=== PATIENT | male | born 1965 | race Caucasian/White ===

== ENCOUNTER 2018-08-14 19:24 | Emergency (ER) | payer MEDICAID ==
[2018-08-14] MEDS ORDERED: ONDANSETRON 4 MG/2 ML VIAL IVP ONE (20:09)
[2018-08-14] MEDS ORDERED: LORazepam 2 MG/ML INJ IVP ONE (20:09)
[2018-08-14] MEDS ORDERED: chlordiazePOXIDE 25 MG CAP PO ONE (20:09)
[2018-08-14] MEDS ORDERED: NS 1,000 ML IV ONE (20:19)
[2018-08-14 20:36] LABS: PLATELET COUNT 241 10^3/uL (150-400)
--- NOTE | 2018-08-14 21:42 | EDPHY ---
H & P Stated Complaint: ETOH withdrawal and right arm injury Time Seen by Provider: 08/14/18 19:46 HPI/ROS: Chief complaint: Alcohol withdrawal History of present illness: This is a 52-year-old male who presents to the emergency department concerned he has an alcohol withdrawal. He states he has a chronic drinker. His last drink was this morning. Since then he started feel poorly. He describes malaise, nausea without vomiting and shakiness. He did fall and strike his right arm and has an abrasion to the forearm. No pain and he is still moving the extremity well. He denies other associated signs or symptoms Review of systems: A 10 point review of systems was obtained and other than described above was negative - Personal History Current Tetanus/Diphtheria Vaccine: Yes Current Tetanus Diphtheria and Acellular Pertussis (TDAP): Yes Tetanus Vaccine Date: 2009 - Medical/Surgical History Hx Asthma: No Hx Chronic Respiratory Disease: No Hx Diabetes: No Hx Cardiac Disease: No Hx Renal Disease: No Hx Cirrhosis: No Hx Alcoholism: Yes Hx HIV/AIDS: No Hx Splenectomy or Spleen Trauma: No Other PMH: SMOKER. HOMELESS. pacemaker. stroke 2010. poss mass on right kidney - Social History Smoking Status: Current every day smoker - Physical Exam Exam: General Appearance: Alert, no apparent distress, tremulous. Eyes: Pupils equal and round no pallor or injection. ENT, Mouth: Mucous membranes moist. Respiratory: There are no retractions, lungs are clear to auscultation. Cardiovascular: Tachycardic with regular rhythm. Gastrointestinal: Abdomen is soft and nontender, no masses, bowel sounds normal. Neurological: Alert. Strength and sensation intact and symmetrical. Skin: Warm and dry, no rashes. Musculoskeletal: Neck is supple nontender. There is a contusion to his right mid forearm. No tenderness to palpation. He is moving the right upper extremity without difficulty. Extremities are symmetrical, full range of motion. Psychiatric: Patient is oriented X 3, there is no agitation. Constitutional: Initial Vital Signs Temperature (C) 36.6 C 08/14/18 19:25 Heart Rate 120 H 08/14/18 19:25 Respiratory Rate 16 08/14/18 19:25 Blood Pressure 122/77 H 08/14/18 19:25 O2 Sat (%) 94 08/14/18 19:25 O2 Delivery Mode Room Air Allergies/Adverse Reactions: povidone-iodine [From Betadine] Allergy (Severe, Verified 08/14/18 19:29) Other-Enter Comments soap [From Betadine] Allergy (Severe, Verified 08/14/18 19:29) Other-Enter Comments ketorolac tromethamine [From Toradol] Allergy (Intermediate, Verified 08/14/18 19:29) Hives Home Medications: Medication Instructions Recorded NK [No Known Home Meds] 08/14/18 Medical Decision Making ED Course/Re-evaluation: Patient seen under the supervision of my secondary supervising physician Dr. Cora Khan. Patient presents to the emergency department concerned he is going through alcohol withdrawal. He is nontoxic. He is tachycardic but night hypertensive. He is tremulous. There is mild abrasion to his right arm I do not believe this warrants imaging given lack of tenderness and good movement. Blood studies largely unremarkable. He is IV hydrated. Treated with IV Ativan and oral Librium with improvement in symptoms. He does appear to be intoxicated still. He will be discharged to the [facility] for treatment. Differential Diagnosis: Included but not limited to alcohol intoxication, alcohol withdrawal, delirium tremens, polysubstance abuse - Data Points Laboratory Results: Laboratory Results 08/14/18 20:27 08/14/18 20:27 08/14/18 08/14/18 20:27 20:27 WBC 3.90 10^3/uL 10^3/uL (3.80-9.50) RBC 4.44 10^6/uL 10^6/uL (4.40-6.38) Hgb 13.5 g/dL L g/dL (13.7-17.5) Hct 38.9 % L % (40.0-51.0) MCV 87.6 fL fL (81.5-99.8) MCH 30.4 pg pg (27.9-34.1) MCHC 34.7 g/dL g/dL (32.4-36.7) RDW 15.9 % H % (11.5-15.2) Plt Count 241 10^3/uL 10^3/uL (150-400) MPV 9.0 fL fL (8.7-11.7) Neut % (Auto) 53.8 % % (39.3-74.2) Lymph % (Auto) 31.0 % % (15.0-45.0) [place] % (Auto) 12.6 % % (4.5-13.0) Eos % (Auto) 1.3 % % (0.6-7.6) Baso % (Auto) 1.0 % % (0.3-1.7) Nucleat RBC Rel Count 0.0 % % (0.0-0.2) Absolute Neuts (auto) 2.10 10^3/uL 10^3/uL (1.70-6.50) Absolute Lymphs (auto) 1.21 10^3/uL 10^3/uL (1.00-3.00) Absolute Monos (auto) 0.49 10^3/uL 10^3/uL (0.30-0.80) Absolute Eos (auto) 0.05 10^3/uL 10^3/uL (0.03-0.40) Absolute Basos (auto) 0.04 10^3/uL 10^3/uL (0.02-0.10) Absolute Nucleated RBC 0.00 10^3/uL 10^3/uL (0-0.01) Immature Gran % 0.3 % % (0.0-1.1) Immature Gran # 0.01 10^3/uL 10^3/uL (0.00-0.10) Sodium 140 mEq/L mEq/L (135-145) Potassium 3.9 mEq/L mEq/L (3.3-5.0) Chloride 104 mEq/L mEq/L (97-110) Carbon Dioxide 19 mEq/l L mEq/l (22-31) Anion Gap 17 mEq/L H mEq/L (6-14) BUN 14 mg/dL mg/dL (7-23) Creatinine 0.9 mg/dL mg/dL (0.7-1.3) Estimated GFR > 60 Glucose 190 mg/dL H mg/dL (70-100) Calcium 8.7 mg/dL mg/dL (8.5-10.4) Total Bilirubin 0.6 mg/dL mg/dL (0.1-1.4) Conjugated Bilirubin 0.4 mg/dL mg/dL (0.0-0.5) Unconjugated Bilirubin 0.2 mg/dL mg/dL (0.0-1.1) AST 111 IU/L H IU/L (17-59) ALT 109 IU/L H IU/L (21-72) Alkaline Phosphatase 42 IU/L IU/L (38-126) Total Protein 6.6 g/dL g/dL (6.3-8.2) Albumin 4.1 g/dL g/dL (3.5-5.0) Ethyl Alcohol 357 mg/dL H mg/dL (0-10) Medications Given: Discontinued Medications Chlordiazepoxide (Librium 25 Mg Prepack#6) 1 btl TAKEHOME EDNOW ONE Stop: 08/14/18 22:07 Last Admin: 08/14/18 22:10 Dose: 1 btl Chlordiazepoxide HCl (Librium) 50 mg PO EDNOW ONE Stop: 08/14/18 20:10 Last Admin: 08/14/18 20:22 Dose: 50 mg Sodium Chloride (Ns) 1,000 mls @ 0 mls/hr IV ONCE ONE; Wide Open PRN Reason: Protocol Stop: 08/14/18 20:20 Last Admin: 08/14/18 20:19 Dose: 1,000 mls Lorazepam (Ativan Injection) 2 mg IVP EDNOW ONE Stop: 08/14/18 20:10 Last Admin: 08/14/18 20:22 Dose: 2 mg Ondansetron HCl (Zofran) 4 mg IVP EDNOW ONE Stop: 08/14/18 20:10 Last Admin: 08/14/18 20:22 Dose: 4 mg Ondansetron HCl (Zofran Odt 4 Mg Prepack#2) 1 btl TAKEHOME EDNOW ONE Stop: 08/14/18 22:24 Last Admin: 08/14/18 22:31 Dose: 1 btl Departure - Departure Disposition: Home, Routine, Self-Care Clinical Impression: Alcoholic intoxication Qualifiers: Complication of substance-induced condition: uncomplicated Qualified Code(s): F10.920 - Alcohol use, unspecified with intoxication, uncomplicated Condition: Good Instructions: Chlordiazepoxide/Clidinium (By mouth), Ondansetron (By mouth), Alcohol Intoxication (ED) Additional Instructions: Follow-up with a primary care doctor for recheck Clear for ARC If symptoms worsen or new symptoms develop return to the emergency room for recheck Referrals: NONE *PRIMARY CARE P,. [Primary Care Provider] - As per Instructions [facility],. [Clinic] - As per Instructions
[2018-08-14] MEDS ORDERED: CHLORDIAZEPOXIDE 25MG PREPK#6 BTL TAKEHOME ONE (22:06)
[2018-08-14] MEDS ORDERED: ONDANSETRON 4MG PREPACK#2 BTL TAKEHOME ONE (22:23)
[2018-08-14 22:37] VITALS: BP 107/66
== END 2018-08-14 22:36 | disposition home or self-care (01) ==
DX: F10.920 Alcohol use, unspecified with intoxication, uncomplicated (principal); S50.11XA Contusion of right forearm, initial encounter; E86.9 Volume depletion, unspecified; Y90.8 Blood alcohol level of 240 mg/100 ml or more; F17.210 Nicotine dependence, cigarettes, uncomplicated; W19.XXXA Unspecified fall, initial encounter; Y99.8 Other external cause status; Z59.0 Homelessness
CPT/HCPCS: 96374; G0480; J2060; J2405

== ENCOUNTER 2018-10-04 01:28 | Emergency (ER) | payer MEDICAID ==
[2018-10-04] MEDS ORDERED: NS 1,000 ML IV ONE (01:32)
[2018-10-04] MEDS ORDERED: ONDANSETRON 4 MG/2 ML VIAL IVP ONE (01:32)
--- NOTE | 2018-10-04 01:55 | EDPHY ---
H & P Stated Complaint: Right flank pain and RLQ pain worsening x 4 days. +hematuria Time Seen by Provider: 10/04/18 01:30 HPI/ROS: HPI The patient presents with 3 days of intermittent right-sided flank pain, brought in by ambulance. The pain is aching, severe, radiates to his right lower quadrant. It is associated with nausea and vomiting. He also reports hematuria over the last several days. REVIEW OF SYSTEMS 10 systems were reviewed and negative with the exception of the elements mentioned in the history of present illness. PMHx:, history of kidney stones in the past, umbilical hernia Soc Hx: Homelessness, smokes cigarettes PHYSICAL General Appearance: Alert, no distress Eyes: Pupils equal and round no pallor or injection ENT, Mouth: Mucous membranes moist Respiratory: There are no retractions, lungs are clear to auscultation Cardiovascular: Regular rate and rhythm Gastrointestinal: Abdomen is soft and tender in the right lower quadrant, ventral hernia is present, no masses, bowel sounds normal , right-sided flank tenderness Neurological: A&O, moves all extremities Skin: Warm and dry, no rashes Musculoskeletal: Neck is supple non tender Extremities: symmetrical, full range of motion Psychiatric: Patient is oriented X 3, there is no agitation Source: Patient, EMS Exam Limitations: No limitations - Personal History Tetanus Vaccine Date: 2009 - Medical/Surgical History Hx Asthma: No Hx Chronic Respiratory Disease: No Hx Diabetes: No Hx Cardiac Disease: No Hx Renal Disease: No Hx Cirrhosis: No Hx Alcoholism: Yes Hx HIV/AIDS: No Hx Splenectomy or Spleen Trauma: No Other PMH: SMOKER. HOMELESS. pacemaker. stroke 2010. poss mass on right kidney - Social History Smoking Status: Heavy smoker Constitutional: Initial Vital Signs Temperature (C) 36.5 C 10/04/18 01:35 Heart Rate 101 H 10/04/18 01:35 Respiratory Rate 16 10/04/18 01:35 Blood Pressure 129/79 H 10/04/18 01:35 O2 Sat (%) 94 10/04/18 01:35 O2 Delivery Mode Room Air Allergies/Adverse Reactions: povidone-iodine [From Betadine] Allergy (Severe, Verified 10/04/18 01:35) Other-Enter Comments soap [From Betadine] Allergy (Severe, Verified 10/04/18 01:35) Other-Enter Comments ketorolac tromethamine [From Toradol] Allergy (Intermediate, Verified 10/04/18 01:35) Hives Home Medications: Medication Instructions Recorded Ibuprofen [Motrin (*)] 10/04/18 Medical Decision Making - Diagnostics Imaging Results: CT abdomen pelvis without contrast demonstrates no nephrolithiasis, no ureterolithiasis, appendix is visualized and normal, discussed with the radiologist customer contact sales associate Dr. Modi Differential Diagnosis: This is a 52-year-old homeless male who presents with 4 days of progressive right-sided flank pain which radiates to his right lower quadrant associated with nausea. He is brought in by ambulance. Here, he is quite uncomfortable appearing. I have ordered basic labs and a CT scan for him. He says that he does have a history of kidney stones. I did look him up in [facility], and he has had multiple ED visits over the last several days. Most recently seen at [facility] on October 02 for similar presentation with negative workup. He was seen September 28 for alcohol withdrawal at [facility]. He was seen September 26 for abdominal pain at [facility]. I confronted him about these visits though he adamantly denies that he was at any of these places with any complaints. I feel he is not being truthful about his current presentation and I suspect there may be some secondary gain at stake. He did have a normal evaluation here and eventually fell asleep for several hours. UA did show hematuria. Cause of this has not been elucidated on his CT scan. I do feel that he would benefit from Urology follow-up for this and I have explained this to him and given him information for the urologist on-call. - Data Points Laboratory Results: Laboratory Results 10/04/18 01:55 10/04/18 01:55 10/04/18 10/04/18 10/04/18 03:00 01:55 01:55 WBC 3.92 10^3/uL 10^3/uL (3.80-9.50) RBC 4.52 10^6/uL 10^6/uL (4.40-6.38) Hgb 13.6 g/dL L g/dL (13.7-17.5) Hct 40.4 % % (40.0-51.0) MCV 89.4 fL fL (81.5-99.8) MCH 30.1 pg pg (27.9-34.1) MCHC 33.7 g/dL g/dL (32.4-36.7) RDW 16.2 % H % (11.5-15.2) Plt Count 242 10^3/uL 10^3/uL (150-400) MPV 8.6 fL L fL (8.7-11.7) Neut % (Auto) 57.4 % % (39.3-74.2) Lymph % (Auto) 28.3 % % (15.0-45.0) [place] % (Auto) 11.2 % % (4.5-13.0) Eos % (Auto) 1.8 % % (0.6-7.6) Baso % (Auto) 1.3 % % (0.3-1.7) Nucleat RBC Rel Count 0.0 % % (0.0-0.2) Absolute Neuts (auto) 2.25 10^3/uL 10^3/uL (1.70-6.50) Absolute Lymphs (auto) 1.11 10^3/uL 10^3/uL (1.00-3.00) Absolute Monos (auto) 0.44 10^3/uL 10^3/uL (0.30-0.80) Absolute Eos (auto) 0.07 10^3/uL 10^3/uL (0.03-0.40) Absolute Basos (auto) 0.05 10^3/uL 10^3/uL (0.02-0.10) Absolute Nucleated RBC 0.00 10^3/uL 10^3/uL (0-0.01) Immature Gran % 0.0 % % (0.0-1.1) Immature Gran # 0.00 10^3/uL 10^3/uL (0.00-0.10) Sodium 142 mEq/L mEq/L (135-145) Potassium 4.1 mEq/L mEq/L (3.3-5.0) Chloride 112 mEq/L H mEq/L (97-110) Carbon Dioxide 20 mEq/l L mEq/l (22-31) Anion Gap 10 mEq/L mEq/L (6-14) BUN 10 mg/dL mg/dL (7-23) Creatinine 0.7 mg/dL mg/dL (0.7-1.3) Estimated GFR > 60 Glucose 99 mg/dL mg/dL (70-100) Calcium 8.5 mg/dL mg/dL (8.5-10.4) Total Bilirubin 0.4 mg/dL mg/dL (0.1-1.4) AST 65 IU/L H IU/L (17-59) ALT 43 IU/L IU/L (21-72) Alkaline Phosphatase 53 IU/L IU/L (38-126) Total Protein 7.0 g/dL g/dL (6.3-8.2) Albumin 4.1 g/dL g/dL (3.5-5.0) Urine Color YELLOW Urine Appearance HAZY Urine pH 5.0 (5.0-7.5) Ur Specific [place] 1.021 (1.002-1.030) Urine Protein NEGATIVE (NEGATIVE) Urine Ketones NEGATIVE (NEGATIVE) Urine Blood 3+ H (NEGATIVE) Urine Nitrate NEGATIVE (NEGATIVE) Urine Bilirubin NEGATIVE (NEGATIVE) Urine Urobilinogen 4.0 EU H EU (0.2-1.0) Ur Leukocyte Esterase NEGATIVE (NEGATIVE) Urine RBC Pending Urine WBC Pending Ur Epithelial Cells Pending Urine Glucose NEGATIVE (NEGATIVE) Medications Given: Discontinued Medications Hydromorphone HCl (Dilaudid) 0.5 mg IVP EDNOW ONE Stop: 10/04/18 02:15 Last Admin: 10/04/18 02:22 Dose: Not Given Sodium Chloride (Ns) 1,000 mls @ 0 mls/hr IV EDNOW ONE; Wide Open PRN Reason: Protocol Stop: 10/04/18 01:33 Last Admin: 10/04/18 02:02 Dose: 1,000 mls Ondansetron HCl (Zofran) 4 mg IVP EDNOW ONE Stop: 10/04/18 01:33 Last Admin: 10/04/18 02:02 Dose: 4 mg Departure - Departure Disposition: Home, Routine, Self-Care Clinical Impression: Right flank pain Hematuria Qualifiers: Hematuria type: unspecified type Qualified Code(s): R31.9 - Hematuria, unspecified Condition: Good Instructions: Hematuria (ED) Additional Instructions: Your CT scan did not show any kidney stones, appendicitis, concerning findings. You did have blood in your urine and because of this I do think you need to be evaluated by urologist. I have put the phone number for our on-call urologist below. Referrals: Karan Lopez MD [Medical Doctor] - As per Instructions
[2018-10-04 02:13] LABS: PLATELET COUNT 242 10^3/uL (150-400)
[2018-10-04] MEDS ORDERED: HYDROmorphONE/DILAUDID 2 MG/ML INJ IVP ONE (02:14)
[2018-10-04 03:48] VITALS: BP 109/63
== END 2018-10-04 03:47 | disposition home or self-care (01) ==
LOC: EDUNIT#
DX: R10.31 Right lower quadrant pain (principal); R31.9 Hematuria, unspecified; E86.9 Volume depletion, unspecified; F17.200 Nicotine dependence, unspecified, uncomplicated; Z86.73 Personal history of transient ischemic attack (TIA), and cerebral infarction without residual deficits; Z95.0 Presence of cardiac pacemaker; Z59.0 Homelessness
CPT/HCPCS: 96374; J2405

== ENCOUNTER 2018-11-01 23:23 | Emergency (ER) | payer MEDICAID ==
--- NOTE | 2018-11-01 23:26 | EDPHY ---
H & P Time Seen by Provider: 11/01/18 23:26 HPI/ROS: HPI CHIEF COMPLAINT: Alcohol Intoxication HISTORY OF PRESENT ILLNESS: 53-year-old male homeless, found lying in a snowbank, highly intoxicated with alcohol. EMS arrived to find him is snowbank highly intoxicated alcohol bystanders called 911. No reported trauma. He arrives to the emergency room he is not hypothermic, vital signs stable, he is highly intoxicated. Smells of alcohol slurring his speech and very sleepy. Past Medical History: Unknown medical history Past Surgical History: Unknown surgical history Social History: Alcohol and homelessness. Family History: Unknown ROS REVIEW OF SYSTEMS: Review of systems limited due to clinical state and acute alcohol intoxication Exam Constitutional Intoxicated, triage nursing summary reviewed, vital signs reviewed, Sleepy, smells of alcohol not hypothermic. Eyes normal conjunctivae and sclera, horizontal beating nystagmus consistent acute alcohol intoxication, otherwise pupils equal and react to light HENT normal inspection, atraumatic, moist mucus membranes, no epistaxis, neck supple/ no meningismus, no raccoon eyes. Respiratory clear to auscultation bilaterally, normal breath sounds, no respiratory distress, no wheezing. Cardiovascular rate normal, regular rhythm, no murmur, no edema, distal pulses normal. Gastrointestinal soft, non-tender, no rebound, no guarding, normal bowel sounds, no distension, no pulsatile mass. Genitourinary no CVA tenderness. Musculoskeletal no midline vertebral tenderness, full range of motion, no calf swelling, no tenderness of extremities, no meningismus, good pulses, neurovascularly intact. Skin pink, warm, & dry, no rash, skin atraumatic. Neurologic sleepy, intoxicated with alcohol,, alert and oriented x 3, AAOx3, moves all 4 extremities equally, motor intact, sensory intact, CN II-XII intact , , normal vision, normal speech. Psychiatric normal mood/affect. Heme/Lymph/Immune no lymphadenopathy. Differential Diagnosis: Includes but is not limited to in a particular order acute alcohol intoxication, alcohol abuse, dehydration, electrolyte abnormality , nausea vomiting from acute alcohol intoxication Medical Decision Making: Plan for this patient breath alcohol, blood sugar. Observation, watch for worsening sedation. Watch for withdrawal. Once appropriately sober can be safely discharged from the emergency room. Re-evaluation: Breath alcohol 277. Glucose 113. Source: Patient, EMS - Personal History Tetanus Vaccine Date: 2009 - Medical/Surgical History Hx Asthma: No Hx Chronic Respiratory Disease: No Hx Diabetes: No Hx Cardiac Disease: No Hx Renal Disease: No Hx Cirrhosis: No Hx Alcoholism: Yes Hx HIV/AIDS: No Hx Splenectomy or Spleen Trauma: No Other PMH: SMOKER. HOMELESS. pacemaker. stroke 2009. poss mass on right kidney - Social History Smoking Status: Heavy smoker Constitutional: Initial Vital Signs Temperature (C) 36.9 C 11/01/18 23:25 Heart Rate 107 H 11/01/18 23:25 Respiratory Rate 18 11/01/18 23:25 Blood Pressure 118/88 H 11/01/18 23:25 O2 Sat (%) 92 11/01/18 23:25 O2 Delivery Mode Room Air Allergies/Adverse Reactions: povidone-iodine [From Betadine] Allergy (Severe, Verified 11/01/18 23:38) Other-Enter Comments soap [From Betadine] Allergy (Severe, Verified 11/01/18 23:38) Other-Enter Comments ketorolac tromethamine [From Toradol] Allergy (Intermediate, Verified 11/01/18 23:38) Hives Home Medications: Medication Instructions Recorded Ibuprofen [Motrin (*)] 10/04/18 Departure - Departure Disposition: Home, Routine, Self-Care Clinical Impression: Alcoholic intoxication Condition: Good Instructions: Alcohol Intoxication (ED), Abuse of Alcohol (ED) Referrals: NONE *PRIMARY CARE P,. [Primary Care Provider] - As per Instructions
[2018-11-02] MEDS ORDERED: CHLORDIAZEPOXIDE 25MG PREPK#6 BTL TAKEHOME ONE ×2 (07:00→07:01)
[2018-11-02 07:03] VITALS: BP 119/75
== END 2018-11-02 07:02 | disposition home or self-care (01) ==
LOC: EDUNIT#
DX: F10.920 Alcohol use, unspecified with intoxication, uncomplicated (principal); Z59.0 Homelessness

== ENCOUNTER 2018-11-02 23:52 | Inpatient (IN) | payer MEDICAID ==
[2018-11-02] MEDS ORDERED: NS 1,000 ML IV ONE (23:59)
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
[2018-11-03 00:20] LABS: PLATELET COUNT 236 10^3/uL (150-400)
[2018-11-03] MEDS ORDERED: IOPAMIDOL (ISOVUE-300) 100 ML BTL ONE (00:30)
[2018-11-03 01:40] LABS: INR 0.9 (0.83-1.16); PROTIME(PATIENT) 12.4 SEC (12.0-15.0)
[2018-11-03] MEDS ORDERED: TDAP ADULT 0.5 ML INJ (BOOSTRIX) IM ONE (01:54)
[2018-11-03] MEDS ORDERED: ONDANSETRON 4 MG/2 ML VIAL IVP PRN (02:17)
[2018-11-03] MEDS ORDERED: DIAZEPAM 5 MG TAB PO PRN (02:17)
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
[2018-11-03] MEDS ORDERED: MAG HYDROX/AL HYDROX/SIMETH 30 ML UDCUP PO PRN (02:22)
[2018-11-03] MEDS ORDERED: NICOTINE 21 MG/24 HR PATCH TD PRN (02:22)
[2018-11-03] MEDS ORDERED: FLUMAZENIL 0.5 MG/5 ML MDV IVP PRN (02:22)
[2018-11-03] MEDS ORDERED: NS 500 ML IV PRN (02:22)
[2018-11-03] MEDS ORDERED: levETIRAcetam 1000MG/NACL 100 ML IV ONE (03:11)
[2018-11-03] MEDS: FAMOTIDINE 20 MG TAB PO SCH ×3 (03:47→21:08)
[2018-11-03] MEDS: LORazepam 2 MG/ML INJ IVP PRN ×3 (03:54→22:31)
[2018-11-03] MEDS: LORazepam 1 MG TAB PO SCH ×3 (06:23→17:56)
[2018-11-03] MEDS: ACETAMINOPHEN 325 MG TAB PO PRN ×2 (06:37→15:57)
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
[2018-11-03] MEDS: THIAMINE HCL 500 MG in NS 100 ML IV SCH (08:53)
[2018-11-03 08:54] LABS: PLATELET COUNT 195 10^3/uL (150-400)
[2018-11-03] MEDS: levETIRAcetam 500 MG TAB PO SCH ×2 (08:54→21:08)
[2018-11-03] MEDS: MULTIVITAMINS 1 EACH TAB PO SCH (08:54)
[2018-11-03] MEDS: FOLIC ACID 1 MG TAB PO SCH (08:54)
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
--- NOTE | 2018-11-03 10:55 | CPEKG ---
Test Reason : OPEN Blood Pressure : / mmHG Vent. Rate : 096 BPM Atrial Rate : 098 BPM P-R Int : 144 ms QRS Dur : 081 ms QT Int : 354 ms P-R-T Axes : 066 -34 050 degrees QTc Int : 448 ms Sinus rhythm Probable left atrial enlargement Left axis deviation Confirmed by Lyndsay Quiroga ([id number]) on 11/03/2018 10:55:20 AM Referred By: Confirmed By:Lyndsay Quiroga
[2018-11-03] MEDS ORDERED: PROTOCOL POTASSIUM 1 DOSE MISC PRN (11:04)
[2018-11-03] MEDS ORDERED: PROTOCOL MAGNESIUM 1 DOSE IV PRN (11:04)
[2018-11-03] MEDS ORDERED: POTASSIUM CL 10 MEQ TAB PO ONE ×2 (12:31→21:47)
[2018-11-03] MEDS: LORazepam 1 MG TAB PO PRN ×2 (12:53→16:33)
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
[2018-11-03] MEDS: NICOTINE 14 MG/24 HR PATCH TD SCH (13:17)
[2018-11-03] MEDS ORDERED: chlordiazePOXIDE 25 MG CAP PO ONE (16:13)
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
[2018-11-03 18:24] LABS: PLATELET COUNT 184 10^3/uL (150-400)
[2018-11-03] MEDS: QUEtiapine FUMARATE 100 MG TAB PO SCH (21:08)
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
[2018-11-03] MEDS: HYDROCODONE/APAP 5/325 TAB PO PRN (22:30)
[2018-11-04] MEDS: LORazepam 1 MG TAB PO SCH ×3 (01:11→13:27)
[2018-11-04 01:26] LABS: PLATELET COUNT 176 10^3/uL (150-400)
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
[2018-11-04] MEDS: NICOTINE 14 MG/24 HR PATCH TD SCH (08:56)
[2018-11-04] MEDS: THIAMINE HCL 500 MG in NS 100 ML IV SCH (08:56)
[2018-11-04] MEDS: FAMOTIDINE 20 MG TAB PO SCH ×2 (08:58→21:17)
[2018-11-04] MEDS: HYDROCODONE/APAP 5/325 TAB PO PRN ×3 (08:58→21:18)
[2018-11-04] MEDS: FOLIC ACID 1 MG TAB PO SCH (08:58)
[2018-11-04] MEDS: ASPIRIN 81 MG CHEWABLE TAB PO SCH (08:58)
[2018-11-04] MEDS: levETIRAcetam 500 MG TAB PO SCH ×2 (08:59→21:18)
[2018-11-04] MEDS: MULTIVITAMINS 1 EACH TAB PO SCH (08:59)
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
[2018-11-04] MEDS: diphenhydrAMINE 25 MG CAP PO PRN (16:50)
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
[2018-11-04] MEDS: QUEtiapine FUMARATE 100 MG TAB PO SCH (21:17)
[2018-11-05] MEDS: HYDROCODONE/APAP 5/325 TAB PO PRN ×4 (05:41→20:28)
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
[2018-11-05] MEDS: levETIRAcetam 500 MG TAB PO SCH ×2 (08:51→20:28)
[2018-11-05] MEDS: FOLIC ACID 1 MG TAB PO SCH (08:52)
[2018-11-05] MEDS: MULTIVITAMINS 1 EACH TAB PO SCH (08:52)
[2018-11-05] MEDS: FAMOTIDINE 20 MG TAB PO SCH ×2 (08:52→20:28)
[2018-11-05] MEDS: ASPIRIN 81 MG CHEWABLE TAB PO SCH (08:52)
[2018-11-05] MEDS: NICOTINE 14 MG/24 HR PATCH TD SCH (08:52)
[2018-11-05] MEDS: THIAMINE HCL 500 MG in NS 100 ML IV SCH (09:57)
[2018-11-05] MEDS: LORazepam 2 MG/ML INJ IVP PRN ×2 (15:22→21:15)
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
[2018-11-05] MEDS: diphenhydrAMINE 25 MG CAP PO PRN (20:28)
[2018-11-05] MEDS: QUEtiapine FUMARATE 100 MG TAB PO SCH (21:16)
[2018-11-06] MEDS ORDERED: levETIRAcetam 500 MG TAB PO SCH
[2018-11-06] MEDS ORDERED: QUEtiapine FUMARATE 100 MG TAB PO SCH
[2018-11-06] MEDS: LORazepam 2 MG/ML INJ IVP PRN (04:51)
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
[2018-11-06] MEDS ORDERED: THIAMINE HCL 100 MG TAB PO SCH (09:00)
[2018-11-06 09:22] VITALS: BP 114/80
[2018-11-06] MEDS: FOLIC ACID 1 MG TAB PO SCH (11:30)
[2018-11-06] MEDS: MULTIVITAMINS 1 EACH TAB PO SCH (11:31)
[2018-11-06] MEDS: levETIRAcetam 500 MG TAB PO SCH (11:31)
[2018-11-06] MEDS: ASPIRIN 81 MG CHEWABLE TAB PO SCH (11:31)
[2018-11-06] MEDS: NICOTINE 14 MG/24 HR PATCH TD SCH (11:32)
[2018-11-06] MEDS: FAMOTIDINE 20 MG TAB PO SCH (11:32)
[2018-11-06] MEDS: HYDROCODONE/APAP 5/325 TAB PO PRN (11:35)
--- NOTE | 2018-11-06 12:47 | ASMTCMCOM ---
CM Note CM Note Notes: Patient accepted to respite bed. Medications mapped per CM for 2 days. [facility]. [facility] provided by [facility]. CM available should other needs arise. Plan: Dc to respite care Date Signed: 11/06/2018 12:46 PM Electronically Signed By:Ale Vallecillo RN
== END 2018-11-06 12:58 | disposition home or self-care (01) | DRG 55 ==
LOC: EDUNIT# → F2N 11-03 03:07 → F1N 11-05 13:57
PROVIDERS: ADMIT Surgery; ATTEND Internal Medicine
DX: S06.5X1A Traumatic subdural hemorrhage with loss of consciousness of 30 minutes or less, initial encounter (principal); Y04.0XXA Assault by unarmed brawl or fight, initial encounter; Y92.811 Bus as the place of occurrence of the external cause; M54.2 Cervicalgia; F10.229 Alcohol dependence with intoxication, unspecified; F10.239 Alcohol dependence with withdrawal, unspecified; F43.10 Post-traumatic stress disorder, unspecified; J44.9 Chronic obstructive pulmonary disease, unspecified; F17.210 Nicotine dependence, cigarettes, uncomplicated; Z86.19 Personal history of other infectious and parasitic diseases; Z95.0 Presence of cardiac pacemaker; Z86.73 Personal history of transient ischemic attack (TIA), and cerebral infarction without residual deficits; Z86.718 Personal history of other venous thrombosis and embolism; Z59.0 Homelessness
CPT/HCPCS: 92523-GN; 97116-GP; 97161-GP; 97165-GO; 97530-GO; 97530-GP; 97535-GO; G0480; J1953; J2060; J2270; J2405; J3411; L0172; Q9967

== ENCOUNTER 2018-12-07 09:04 | Emergency (ER) | payer MEDICAID ==
--- NOTE | 2018-12-07 09:09 | EDPHY ---
H & P Time Seen by Provider: 12/07/18 09:04 HPI/ROS: CHIEF COMPLAINT: Can not walk HISTORY OF PRESENT ILLNESS: Dulce Maria called 911 because the patient was lying down near the bus stop near the [employer]. He admits to alcohol and is brought in by EMS unable to walk. Admits to alcohol, denies any medical complaints except for "cold feet." REVIEW OF SYSTEMS: Eye: no change in vision ENT: no sore throat Cardiac: no chest pain or syncope Pulmonary: no cough or SOB Abdomen: no vomiting, diarrhea, abdominal pain Musculoskeletal: no back pain Skin: no rash Neuro: no headache Constitutional: no fever : no urinary symptoms A comprehensive 10 point review of systems is otherwise negative aside from elements mentioned in the history of present illness. PAST MEDICAL HISTORY: History and physical dated 11/03/2018 and 07/03/2013 and discharge summary dated 11/06/2018 personally reviewed, admitted with chronic subdural. 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 Eyes: No scleral icterus. ENT, Mouth: Normal mucous membranes. No tongue laceration or abrasion. Respiratory: Normal respiratory effort, breath sounds equal, lungs are clear to auscultation. Cardiovascular: Regular rate and rhythm. Gastrointestinal: Abdomen is soft and non tender. Neurological: Patient will move all 4 extremities on command. Slurred speech. Skin: No external evidence of laceration or abrasion. Musculoskeletal: No spinal or extremity deformity or tenderness. Psychiatric: Not agitated. Emergency Department course/MDM: History of subdural but no recent trauma no external evidence of head trauma. More likely alcohol related. Plan for labs to include CBC chemistry and ethanol , serial examinations. 1412: Ambulatory, clear sensorium, no medical complaints, stable for discharge to detox. Smoking Status: Heavy smoker Constitutional: Initial Vital Signs Temperature (C) 36.1 C 12/07/18 09:13 Heart Rate 78 12/07/18 09:13 Respiratory Rate 18 12/07/18 09:13 Blood Pressure 122/82 H 12/07/18 09:13 O2 Sat (%) 100 12/07/18 09:13 O2 Delivery Mode Room Air O2 (L/minute) 3 Allergies/Adverse Reactions: povidone-iodine [From Betadine] Allergy (Severe, Verified 11/02/18 23:55) Other-Enter Comments soap [From Betadine] Allergy (Severe, Verified 11/02/18 23:55) Other-Enter Comments ketorolac tromethamine [From Toradol] Allergy (Intermediate, Verified 11/02/18 23:55) Hives Home Medications: Medication Instructions Recorded Albuterol [Proventil Inhaler HFA 1 - 2 puffs IH Q4H PRN 11/03/18 (*)] Aspirin [Aspirin 81mg (*)] 81 mg PO DAILY 11/03/18 Hydroxyzine Pamoate [Vistaril] 25 - 50 mg PO TID PRN 11/03/18 Multivitamins [Multivitamin (*)] 1 each PO DAILY #0 tab 11/06/18 QUEtiapine FUMARATE [Seroquel 100 100 mg PO HS #2 tab 11/06/18 mg (*)] Thiamine HCl [Vitamin B-1] 100 mg PO DAILY tab 11/06/18 chlordiazePOXIDE [Librium 10 mg 10 mg PO TID #6 cap 11/06/18 (RX)] levETIRAcetam [Keppra 500 mg (*)] 500 mg PO BID #4 tab 11/06/18 Medical Decision Making Differential Diagnosis: Differential considered including but not limited to hypoglycemia, alcohol intoxication, subdural, seizure, other metabolic. - Data Points Laboratory Results: Laboratory Results 12/07/18 09:37 12/07/18 09:23 12/07/18 12/07/18 12/07/18 09:37 09:29 09:23 WBC 3.58 10^3/uL L 10^3/uL (3.80-9.50) RBC 4.39 10^6/uL L 10^6/uL (4.40-6.38) Hgb 13.0 g/dL L g/dL (13.7-17.5) POC Hgb 18.4 gm/dL H gm/dL (13.7-17.5) Hct 40.7 % % (40.0-51.0) POC Hct 54 % H % (40-51) MCV 92.7 fL fL (81.5-99.8) MCH 29.6 pg pg (27.9-34.1) MCHC 31.9 g/dL L g/dL (32.4-36.7) RDW 16.3 % H % (11.5-15.2) Plt Count 125 10^3/uL L 10^3/uL (150-400) MPV 9.0 fL fL (8.7-11.7) Neut % (Auto) 88.0 % H % (39.3-74.2) Lymph % (Auto) 8.9 % L % (15.0-45.0) [place] % (Auto) 2.5 % L % (4.5-13.0) Eos % (Auto) 0.0 % L % (0.6-7.6) Baso % (Auto) 0.3 % % (0.3-1.7) Nucleat RBC Rel Count 0.0 % % (0.0-0.2) Absolute Neuts (auto) 3.15 10^3/uL 10^3/uL (1.70-6.50) Absolute Lymphs (auto) 0.32 10^3/uL L 10^3/uL (1.00-3.00) Absolute Monos (auto) 0.09 10^3/uL L 10^3/uL (0.30-0.80) Absolute Eos (auto) 0.00 10^3/uL L 10^3/uL (0.03-0.40) Absolute Basos (auto) 0.01 10^3/uL L 10^3/uL (0.02-0.10) Absolute Nucleated RBC 0.00 10^3/uL 10^3/uL (0-0.01) Immature Gran % 0.3 % % (0.0-1.1) Immature Gran # 0.01 10^3/uL 10^3/uL (0.00-0.10) RBC/WBC/PLT Morphology TNP Platelet Estimate TNP POC Sodium 143 mEq/L mEq/L (135-145) Sodium 143 mEq/L mEq/L (135-145) POC Potassium 5.2 mEq/L H mEq/L (3.3-5.0) Potassium 5.9 mEq/L H mEq/L (3.5-5.2) POC Chloride 109 mEq/L mEq/L (97-110) Chloride 111 mEq/L H mEq/L (97-110) Carbon Dioxide 14 mEq/l L mEq/l (22-31) POC Total CO2 18 mEq/L L mEq/L (22-31) Anion Gap 18 mEq/L H mEq/L (6-14) POC BUN 18 mg/dL mg/dL (7-23) BUN 15 mg/dL mg/dL (7-23) Creatinine 0.6 mg/dL L mg/dL (0.7-1.3) POC Creatinine 0.8 mg/dL mg/dL (0.7-1.3) Estimated GFR > 60 Glucose 72 mg/dL mg/dL (70-100) POC Glucose 71 mg/dL mg/dL (70-100) Calcium 8.2 mg/dL L mg/dL (8.5-10.4) Specimen Hemolysis 200 Ethyl Alcohol 443 mg/dL H* mg/dL (0-10) Medications Given: Discontinued Medications Chlordiazepoxide (Librium 25 Mg Prepack#6) [facility] Stop: 12/07/18 14:17 Last Admin: 12/07/18 14:18 Dose: 1 btl Point of Care Test Results: Chemistry 12/07/18 09:29 POC Sodium 143 mEq/L mEq/L (135-145) POC Potassium 5.2 mEq/L H mEq/L (3.3-5.0) POC Chloride 109 mEq/L mEq/L (97-110) POC Total CO2 18 mEq/L L mEq/L (22-31) POC BUN 18 mg/dL mg/dL (7-23) POC Creatinine 0.8 mg/dL mg/dL (0.7-1.3) POC Glucose 71 mg/dL mg/dL (70-100) ISTAT H&H 12/07/18 09:29 POC Hgb 18.4 gm/dL H gm/dL (13.7-17.5) POC Hct 54 % H % (40-51) Departure - Departure Disposition: Home, Routine, Self-Care Clinical Impression: Alcoholic intoxication Qualifiers: Complication of substance-induced condition: uncomplicated Qualified Code(s): F10.920 - Alcohol use, unspecified with intoxication, uncomplicated Condition: Good Instructions: Chlordiazepoxide (By mouth), Alcohol Intoxication (ED) Referrals: [facility],. [Clinic] - As per Instructions
[2018-12-07 09:50] LABS: PLATELET COUNT 125 10^3/uL (150-400)
--- NOTE | 2018-12-07 10:04 | ASMTCMCOM ---
CM Note CM Note Notes: Patient presents to ED for medication refill request. Patient states that he takes Clonopin which is prescribed by Dr. Oseguera at [facility]. This CM met with patient in triage and patient was not brought back to the ED. Patient tells me that he lost his prescrition and that his next appointment with Dr. Oseguera is on December 19. This CM contacted [facility] at [facility] to inform of patient's presentation to the ED for medication request. Although unable to confirm or deny patient's status at the clinic, she states that patient should call clinic directly and ask to speak with Oumar Paul's RN. I have informed patient of above and provided him with the correct phone number. I have also encouraged patient to call his pharmacy ([facility]) directly to request a refill of hi medication. Patient is tearful and states "I don't feel right without my medication". I offered transportation to [facility] crisis center if patient would like to speak with a counselor but patient declines. I have explained to patient that the ED is not a prescriber for his medication and that he should always contact his pharmacy or provider directly if he is out of his medication. Patient is homeless and denies follow through with the coordinated entry program or detention system. I encouraged him to consider this in an attempt to gain stabilty and potential housing. CM available for further needs prn Date Signed: 12/07/2018 10:03 AM Electronically Signed By:Elisa Sanchez RN
--- NOTE | 2018-12-07 10:34 | ASMTCMCOM ---
CM Note CM Note Notes: Please disregard prior CM note from same date 12/07/18 It was entered on the wrong patient Date Signed: 12/07/2018 10:34 AM Electronically Signed By:Elisa Sanchez RN
[2018-12-07] MEDS ORDERED: CHLORDIAZEPOXIDE 25MG PREPK#6 BTL TAKEHOME ONE ×2 (14:16→14:17)
[2018-12-07 15:03] VITALS: BP 99/52
== END 2018-12-07 15:01 | disposition home or self-care (01) ==
LOC: EDUNIT#
DX: F10.920 Alcohol use, unspecified with intoxication, uncomplicated (principal); R20.8 Other disturbances of skin sensation
CPT/HCPCS: 82435-PO; 82565-PO; 82947-PO; 84132-PO; 84295-PO; 84520-PO; 85014-ER; G0480

== ENCOUNTER 2018-12-21 18:00 | Emergency (ER) | payer MEDICAID ==
[2018-12-21] MEDS ORDERED: NS 1,000 ML IV ONE (18:13)
[2018-12-21] MEDS ORDERED: LORazepam 2 MG/ML INJ IVP ONE (18:14)
[2018-12-21] MEDS ORDERED: ONDANSETRON 4 MG/2 ML VIAL IVP ONE (18:15)
--- NOTE | 2018-12-21 18:16 | EDPHY ---
H & P Stated Complaint: etoh withdrawal Time Seen by Provider: 12/21/18 18:10 HPI/ROS: CHIEF COMPLAINT: Alcohol withdrawal HISTORY OF PRESENT ILLNESS: Patient is a 53-year-old alcoholic homeless man who comes to the emergency department on the bus complaining of alcohol withdrawal. He states that his last drink was around 530 this morning. He wishes to stop drinking. He states that he has suffered seizures from alcohol withdrawal in the past. He is slightly tremulous. He states that he does not have difficulty walking. He has vomited once. No abdominal pain. No hallucination Severity: Moderate Modifying factors: None REVIEW OF SYSTEMS: Constitutional: denies: chills, fever, recent illness, recent injury EENTM: denies: blurred vision, double vision, nose congestion Respiratory: denies: cough, shortness of breath Cardiac: denies: chest pain, irregular heart rate, lightheadedness, palpitations Gastrointestinal/Abdominal: See HPI Genitourinary: denies: dysuria, frequency, hematuria, pain Musculoskeletal: denies: joint pain, muscle pain Skin: denies: lesions, rash, jaundice, bruising Neurological: See HPI denies: headache, numbness, paresthesia, tingling, dizziness, weakness Hematologic/Lymphatic: denies: blood clots, easy bleeding, easy bruising Immunologic/allergic: denies: HIV/AIDS, transplant 10 systems reviewed and negative except as noted EXAM: GENERAL: Disheveled, moderate distress HEAD: Atraumatic, normocephalic. EYES: Pupils equal round and reactive to light, extraocular movements intact, sclera anicteric, conjunctiva are normal. ENT: TMs normal, nares patent, oropharynx clear without exudates. Moist mucous membranes. NECK: Normal range of motion, supple without lymphadenopathy or JVD. LUNGS: Breath sounds clear to auscultation bilaterally and equal. No wheezes rales or rhonchi. HEART: Slightly tachycardic, pacemaker in place, Regular rate and rhythm without murmurs, rubs or gallops. ABDOMEN: Soft, nontender, normoactive bowel sounds. No guarding, no rebound. No masses appreciated. BACK: No CVA tenderness, no spinal tenderness, step-offs or deformities EXTREMITIES: Mild tremors, Normal range of motion, no pitting or edema. No clubbing or cyanosis. NEUROLOGICAL: Cranial nerves II through XII grossly intact. Normal speech, normal gait. 5/5 strength, normal movement in all extremities, normal sensation , normal reflexes PSYCH: Normal mood, normal affect. SKIN: Warm, dry, normal turgor, no visible rashes or lesions. Source: Patient Exam Limitations: No limitations - Personal History Current Tetanus Diphtheria and Acellular Pertussis (TDAP): Yes Tetanus Vaccine Date: 2009 - Medical/Surgical History Hx Asthma: No Hx Chronic Respiratory Disease: No Hx Diabetes: No Hx Cardiac Disease: No Hx Renal Disease: No Hx Cirrhosis: No Hx Alcoholism: Yes Hx HIV/AIDS: No Hx Splenectomy or Spleen Trauma: No Other PMH: Alcoholism. pacemaker. stroke 2009 with no residual deficit. poss mass on right kidney - Family History Significant Family History: No pertinent family hx - Social History Smoking Status: Heavy smoker Alcohol Use: Occasionally Drug Use: None Constitutional: Initial Vital Signs Temperature (C) 36.4 C 12/21/18 18:02 Heart Rate 103 H 12/21/18 18:02 Respiratory Rate 18 12/21/18 18:02 Blood Pressure 167/136 H 12/21/18 18:02 O2 Sat (%) 95 12/21/18 18:02 O2 Delivery Mode Room Air Allergies/Adverse Reactions: povidone-iodine [From Betadine] Allergy (Severe, Verified 12/21/18 18:01) Other-Enter Comments soap [From Betadine] Allergy (Severe, Verified 12/21/18 18:01) Other-Enter Comments ketorolac tromethamine [From Toradol] Allergy (Intermediate, Verified 12/21/18 18:01) Hives ondansetron [From Zofran] Allergy (Verified 12/21/18 18:44) Home Medications: Medication Instructions Recorded Albuterol [Proventil Inhaler HFA 1 - 2 puffs IH Q4H PRN 11/03/18 (*)] Aspirin [Aspirin 81mg (*)] 81 mg PO DAILY 11/03/18 Hydroxyzine Pamoate [Vistaril] 25 - 50 mg PO TID PRN 11/03/18 Multivitamins [Multivitamin (*)] 1 each PO DAILY #0 tab 11/06/18 QUEtiapine FUMARATE [Seroquel 100 100 mg PO HS #2 tab 11/06/18 mg (*)] Thiamine HCl [Vitamin B-1] 100 mg PO DAILY tab 11/06/18 chlordiazePOXIDE [Librium 10 mg 10 mg PO TID #6 cap 11/06/18 (RX)] levETIRAcetam [Keppra 500 mg (*)] 500 mg PO BID #4 tab 11/06/18 Medical Decision Making ED Course/Re-evaluation: 6:40 p.m. the patient became extremely itchy after receiving Zofran. No visible hives. No difficulty breathing. Will treat with Benadryl and observe. 7:40 p.m. Patient is no longer tachycardic or tremulous but is sleeping and somewhat difficult to arouse. Will continue to observe. 8:45 p.m. Patient is sleeping but arousable. Will road test and likely discharge to the alcohol recovery Center with Librium prepack. 9:00 p.m. the patient ambulates without difficulty. Will transfer to the recovery Center. Differential Diagnosis: Partial list of the Differential diagnosis considered include but were not limited to; alcohol withdrawal, polysubstance abuse and although unlikely based on the history and physical exam, I also considered infection, head injury. - Data Points Medications Given: Discontinued Medications Chlordiazepoxide (Librium 25 Mg Prepack#6) 1 btl TAKEHOME EDNOW ONE Stop: 12/21/18 20:46 Last Admin: 12/21/18 20:58 Dose: 1 btl Diphenhydramine HCl (Benadryl Injection) 50 mg IVP EDNOW ONE Stop: 12/21/18 18:43 Last Admin: 12/21/18 18:46 Dose: 50 mg Sodium Chloride (Ns) 1,000 mls @ 0 mls/hr IV EDNOW ONE; Wide Open PRN Reason: Protocol Stop: 12/21/18 18:14 Last Admin: 12/21/18 18:46 Dose: 1,000 mls Lorazepam (Ativan Injection) 2 mg IVP EDNOW ONE Stop: 12/21/18 18:15 Last Admin: 12/21/18 18:45 Dose: 2 mg Ondansetron HCl (Zofran) 4 mg IVP EDNOW ONE Stop: 12/21/18 18:16 Last Admin: 12/21/18 18:44 Dose: 4 mg Departure - Departure Disposition: Home, Routine, Self-Care Clinical Impression: Alcohol dependence Qualifiers: Substance use status: uncomplicated Qualified Code(s): F10.20 - Alcohol dependence, uncomplicated Alcohol withdrawal Qualifiers: Complication of substance-induced condition: uncomplicated Qualified Code(s): F10.230 - Alcohol dependence with withdrawal, uncomplicated Condition: Fair Instructions: Chlordiazepoxide (By mouth), Alcohol Withdrawal (ED) Referrals: NONE *PRIMARY CARE P,. [Primary Care Provider] - As per Instructions [facility],. [Clinic] - As per Instructions
[2018-12-21] MEDS ORDERED: methylPREDNISolone SOD SUCC 125 MG/2 ML VIAL ONE (18:41)
[2018-12-21] MEDS ORDERED: FAMOTIDINE 20 MG/2 ML SDV ONE (18:42)
[2018-12-21] MEDS ORDERED: CHLORDIAZEPOXIDE 25MG PREPK#6 BTL TAKEHOME ONE (20:45)
[2018-12-21 20:46] VITALS: BP 108/67
== END 2018-12-21 22:40 | disposition home or self-care (01) ==
DX: F10.230 Alcohol dependence with withdrawal, uncomplicated (principal); E86.9 Volume depletion, unspecified; Z59.0 Homelessness
CPT/HCPCS: 96374; J1200; J2060; J2405; J2930

== ENCOUNTER 2019-01-12 16:03 | Emergency (ER) | payer MEDICAID ==
--- NOTE | 2019-01-12 16:18 | EDPHY ---
H & P Smoking Status: Heavy smoker Time Seen by Provider: 01/12/19 16:15 HPI/ROS: CHIEF COMPLAINT: Alcohol intoxication, head injury HISTORY OF PRESENT ILLNESS: 53-year-old homeless male presents to the emergency department by ambulance after he fell and hit his head in the [place]. Unclear if there was loss of consciousness. Paramedics noted a trauma to his head and transported him to the emergency department for evaluation. Denies chest pain or difficulty breathing. Denies abdominal pain. Denies injury to upper lower extremities. He is also complaining of some lower back discomfort. REVIEW OF SYSTEMS: Constitutional: No fever, no chills. Eyes: No double or blurry vision. ENT: No sore throat. Respiratory: No cough, no shortness of breath. Cardiac: No chest pain. Gastrointestinal: No abdominal pain, vomiting or diarrhea. Genitourinary: No dysuria. Musculoskeletal: Back pain as above. Skin: No rashes. Neurological: No headache. (Krista Oneil) Past Medical/Surgical History: Pacemaker, ventral hernia, abdominal surgeries, "kidney problems", alcoholism ( Krista Oneil) Social History: Homeless (Krista Oneil) Physical Exam: General Appearance: Smells strongly of alcohol. The patient has a hematoma noted to the anterior aspect of his forehead with superficial abrasion noted. The Eyes: Pupils equal and round. Extraocular motions are all intact. ENT: Mouth: Mucous membranes moist. Poor dentition. Respiratory: No wheezing, rhonchi, or rales, lungs are clear to auscultation. Cardiovascular: Regular rate and rhythm. Gastrointestinal: Well-healed surgical incision to the anterior aspect of the abdomen with large ventral hernia noted. No signs of incarcerated hernia. Neurological: Uncooperative, cannot determine. Skin: Warm and dry, no rashes. Musculoskeletal: Nontender to palpate along the cervical, thoracic or lumbar spine. Neck is supple. Extremities: Full range of motion and no peripheral edema. Psychiatric: Patient is oriented X 3, there is no agitation. (Krista Oneil) Constitutional: Initial Vital Signs Temperature (C) 36.2 C 01/12/19 16:13 Heart Rate 89 01/12/19 16:13 Respiratory Rate 19 01/12/19 16:13 Blood Pressure 147/105 H 01/12/19 16:13 O2 Sat (%) 98 01/12/19 16:13 O2 Delivery Mode Room Air Allergies/Adverse Reactions: povidone-iodine [From Betadine] Allergy (Severe, Verified 01/12/19 16:18) Other-Enter Comments soap [From Betadine] Allergy (Severe, Verified 01/12/19 16:18) Other-Enter Comments ketorolac tromethamine [From Toradol] Allergy (Intermediate, Verified 01/12/19 16:18) Hives ondansetron [From Zofran] Allergy (Verified 01/12/19 16:18) Home Medications: Medication Instructions Recorded Albuterol [Proventil Inhaler HFA 1 - 2 puffs IH Q4H PRN 11/03/18 (*)] Aspirin [Aspirin 81mg (*)] 81 mg PO DAILY 11/03/18 Hydroxyzine Pamoate [Vistaril] 25 - 50 mg PO TID PRN 11/03/18 Multivitamins [Multivitamin (*)] 1 each PO DAILY #0 tab 11/06/18 QUEtiapine FUMARATE [Seroquel 100 100 mg PO HS #2 tab 11/06/18 mg (*)] Thiamine HCl [Vitamin B-1] 100 mg PO DAILY tab 11/06/18 chlordiazePOXIDE [Librium 10 mg 10 mg PO TID #6 cap 11/06/18 (RX)] levETIRAcetam [Keppra 500 mg (*)] 500 mg PO BID #4 tab 11/06/18 Medical Decision Making - Diagnostics Imaging Results: Imaging Impressions Cervical Spine CT 01/12/19 16:14 Impression: 1. Suboptimal due to patient motion artifact despite repeat series without definite displaced fracture. 2. Moderate cervical spondylosis at C5-C6, resulting in moderate central canal stenosis. 3. Recommend plain film correlation. Cosign: Dr. Luis Alberto Henriquez who agrees with findings and recommendations. Findings and recommendations discussed with Emergency Department physician, Dr. Cora Khan at 1827 hours on January 12, 2019. Final report concurs with initial preliminary interpretation. Head CT 01/12/19 16:14 Impression: 1. Resolution of previous right frontal subdural hematoma. 2. No acute hemorrhage, hydrocephalus or mass effect. 3. No skull fracture. Findings and recommendations discussed with Emergency Department physician, Krista Oneil at 1743 hour, 01/12/2019. Final report concurs with initial preliminary interpretation. Cervical Spine X-Ray 01/12/19 18:28 Impression: Negative. No acute fracture or prevertebral soft tissue swelling. Cosigned Dr. Rodriguez. ED Course/Re-evaluation: 53-year-old male presents to the emergency department with altered mental status after fall. He smells strongly of alcohol. Given signs of trauma to his head, I was concerned about possible intracranial bleed or possible cervical spine injury. CT imaging of the head and cervical spine are pending. Care will be turned over to Dr. Cora Khan at 5:00 p.m. For disposition and plan. (Krista Oneil) I took over care of this patient at 5:00 p.m.. We are waiting the results of his CT scan of the head and cervical spine. If the studies are negative, plan is to discharge the patient to the arc. He presented to the emergency department with alcohol intoxication status post ground level fall and striking his forehead. CT head and cervical spine without contrast negative for acute pathology. Results were discussed with staff radiologist Dr. Dayton Guillermo. Secondary to some motion artifact on the cervical spine CT he requested that we get a plain film of the patient's cervical spine. This was obtained and was normal as well. 7:30 p.m., the patient's cervical collar was clinically and radiographically cleared at this time. He was sleeping but easily arousable at this time. He is up and ambulatory to the bathroom. He is appropriate for discharge and transfer to the [facility]. He is on an arc hold. Follow-up and return to emergency department precautions reviewed with him. All of his questions were answered. He was discharged with police to the [facility]. (Cora Khan) Differential Diagnosis: Head injury including but not limited to concussion, skull fracture, intraparenchymal contusion, subarachnoid, subdural and epidural hematoma. Altered mental status including but not limited to hypoglycemia, infectious process, electrolyte abnormality, head injury and intoxicants. (EstherKrista mattson) Departure - Departure Disposition: Home, Routine, Self-Care Clinical Impression: Alcoholic intoxication Qualifiers: Complication of substance-induced condition: uncomplicated Qualified Code(s): F10.920 - Alcohol use, unspecified with intoxication, uncomplicated Head injury due to trauma Qualifiers: Encounter type: initial encounter Qualified Code(s): S09.90XA - Unspecified injury of head, initial encounter Condition: Fair Instructions: Head Injury (ED), Alcohol Intoxication (ED) Additional Instructions: You should not drink alcohol in excess. Referrals: [facility] [Outside] - As per Instructions
[2019-01-12] MEDS ORDERED: CHLORDIAZEPOXIDE 25MG PREPK#6 BTL TAKEHOME ONE (19:56)
[2019-01-12 20:04] VITALS: BP 118/73
== END 2019-01-12 21:00 | disposition home or self-care (01) ==
LOC: EDUNIT#
DX: F10.920 Alcohol use, unspecified with intoxication, uncomplicated (principal); S09.90XA Unspecified injury of head, initial encounter; Z59.0 Homelessness; W01.10XA Fall on same level from slipping, tripping and stumbling with subsequent striking against unspecified object, initial encounter; Y92.830 Public park as the place of occurrence of the external cause; Y93.9 Activity, unspecified; Y99.9 Unspecified external cause status